=== PATIENT | female | born 1955 | race Caucasian/White ===

== ENCOUNTER 2018-05-20 16:48 | Emergency (ER) | payer BC ==
--- NOTE | 2018-05-20 17:52 | EDM.PDOC ---
ED HPI GENERAL MEDICAL PROBLEM - General Chief Complaint: Genitourinary Problem Stated Complaint: KIDNEY STONES-SENT FROM [facility] Time Seen by Provider: 05/20/18 17:22 Source of Information: Reports: Patient History Limitations: Reports: No Limitations - History of Present Illness INITIAL COMMENTS - FREE TEXT/NARRATIVE: Patient is a 62 y/o female who presents to the E.D. complaining of right flank pain that radiates into the right groin. Pain has been present since Sunday with worsening symptoms. She has been experiencing intermittent nausea/ vomiting with onset of pain. She has a history of kidney stones and states the pain is similar to previous episodes. Pain does come and go. At its worst she is unable to get comfortable. Denies painful urination, fever, hematuria, cp, sob, diarrhea, and or any additional complaints. Right Flank Pain Score (Numeric/FACES): 8 - Related Data Allergies Allergy/AdvReac Type Severity Reaction Status Date / Time Penicillins Allergy Hives Verified 05/20/18 17:05 Home Meds: Home Meds Ondansetron [Zofran ODT] 4 mg PO Q6H PRN #15 tab.dis 05/20/18 [Rx] oxyCODONE HCl/Acetaminophen [Percocet 10-325 mg Tablet] 1 each PO Q6HR PRN #25 tablet 05/20/18 [Rx] Past Medical History Cardiovascular History: Reports: Hypertension Genitourinary History: Reports: Renal Calculus, Other (See Below) Other Genitourinary History: lithotripsy Endocrine/Metabolic History: Reports: Other (See Below) Other Endocrine/Metabolic History: diet controlled diabetis Social & Family History - Tobacco Use Smoking Status *Q: Former Smoker Used Tobacco, but Quit: Yes Month/Year Tobacco Last Used: 10 years ED ROS GENERAL - Review of Systems Review Of Systems: ROS reveals no pertinent complaints other than HPI. ED EXAM, GI/ABD - Physical Exam Exam: See Below Exam Limited By: No Limitations General Appearance: Alert, WD/WN, Mild Distress Ears: Hearing Grossly Normal Nose: Normal Inspection Throat/Mouth: Normal Voice, No Airway Compromise Neck: Normal Inspection Respiratory/Chest: No Respiratory Distress, Lungs Clear, Normal Breath Sounds, No Accessory Muscle Use Cardiovascular: Normal Peripheral Pulses, Regular Rate, Rhythm GI/Abdominal Exam: Normal Bowel Sounds, Soft, No Organomegaly, No Distention, Other (right flank. No pain along McBurney's point.) (Female) Exam: Deferred Rectal (Female) Exam: Deferred Back Exam: Normal Inspection, Full Range of Motion, CVA Tenderness (R). No: Paraspinal Tenderness, Vertebral Tenderness Extremities: Normal Inspection, Normal Range of Motion, Non-Tender Neurological: Alert, Oriented, CN II-XII Intact, Normal Cognition, No Motor/ Sensory Deficits Psychiatric: Normal Affect, Normal Mood Skin Exam: Warm, Dry, Intact, Normal Color Course - Vital Signs Last Recorded V/S: Last Vital Signs Temp 98.8 F 05/20/18 17:06 Pulse 99 05/20/18 17:06 Resp 18 05/20/18 17:06 BP 173/79 H 05/20/18 17:06 Pulse Ox 98 05/20/18 17:06 - Orders/Labs/Meds Labs: Laboratory Tests 05/20/18 05/20/18 05/20/18 Range/Units 17:00 17:15 17:15 WBC 12.39 H (3.98-10.04) K/mm3 RBC 4.71 (3.98-5.22) M/mm3 Hgb 14.6 (11.2-15.7) gm/L Hct 43.4 (34.1-44.9) % MCV 92.1 (79.4-94.8) fl MCH 31.0 (25.6-32.2) pg MCHC 33.6 (32.2-35.5) g/dl RDW Std Deviation 40.9 (36.4-46.3) fL Plt Count 211 (182-369) K/mm3 MPV 10.5 (9.4-12.3) fl Neutrophils % (Manual) 60 (40-60) % Band Neutrophils % 0 (0-10) % Lymphocytes % (Manual) 31 (20-40) % Atypical Lymphs % 0 % Monocytes % (Manual) 7 (2-10) % Eosinophils % (Manual) 0 L (0.7-5.8) % Basophils % (Manual) 2 H (0.1-1.2) Platelet Estimate Adequate Plt Morphology Comment Normal RBC Morph Comment Normal Sodium 135 L (136-145) mEq/L Potassium 3.8 (3.5-5.1) mEq/L Chloride 100 (98-107) mEq/L Carbon Dioxide 24 (21-32) mEq/L Anion Gap 14.8 (5-15) BUN 13 (7-18) mg/dL Creatinine 1.3 H (0.55-1.02) mg/dL Est Cr Clr Drug Dosing 36.40 mL/min Estimated GFR (MDRD) 42 (>60) mL/min BUN/Creatinine Ratio 10.0 L (14-18) Glucose 131 H (74-106) mg/dL Calcium 9.3 (8.5-10.1) mg/dL Total Bilirubin 0.9 (0.2-1.0) mg/dL AST 36 (15-37) U/L ALT 42 (14-59) U/L Alkaline Phosphatase 77 (46-116) U/L C-Reactive Protein 3.5 H* (<1.0) mg/dL Total Protein 8.8 H (6.4-8.2) g/dl Albumin 3.8 (3.4-5.0) g/dl Globulin 5.0 gm/dL Albumin/Globulin Ratio 0.8 L (1-2) Urine Color Yellow (Yellow) Urine Appearance Clear (Clear) Urine pH 6.5 (5.0-8.0) Ur Specific [place] 1.020 (1.005-1.030) Urine Protein Negative (Negative) Urine Glucose (UA) Negative (Negative) Urine Ketones Negative (Negative) Urine Occult Blood Negative (Negative) Urine Nitrite Negative (Negative) Urine Bilirubin Negative (Negative) Urine Urobilinogen 0.2 (0.2-1.0) Ur Leukocyte Esterase Trace H (Negative) Urine RBC 0-5 (0-5) /hpf Urine WBC 5-10 H (0-5) /hpf Ur Epithelial Cells 5-10 H (0-5) /hpf Urine Bacteria Few (FEW) /hpf Urine Mucus Not seen (FEW) /hpf Meds: Medications Discontinued Medications Generic Name Dose Route Start Last Admin Trade Name Freq PRN Reason Stop Dose Admin Hydromorphone HCl 0.5 mg 05/20/18 17:47 05/20/18 18:01 Dilaudid IVPUSH 05/20/18 17:48 0.5 mg ONETIME ONE Administration Hydromorphone HCl 0.5 mg 05/20/18 19:28 05/20/18 19:39 Dilaudid IVPUSH 05/20/18 19:29 0.5 mg ONETIME ONE Administration Sodium Chloride 1,000 mls @ 250 mls/hr 05/20/18 17:47 05/20/18 18:00 Normal Saline IV 05/20/18 21:46 250 mls/hr ONETIME ONE Administration Ketorolac Tromethamine 15 mg 05/20/18 19:31 05/20/18 19:38 Toradol IVPUSH 05/20/18 19:32 15 mg ONETIME ONE Administration Ondansetron HCl 4 mg 05/20/18 17:47 05/20/18 17:59 Zofran IVPUSH 05/20/18 17:48 4 mg ONETIME ONE Administration Sodium Chloride 10 ml 05/20/18 17:47 05/20/18 18:01 Saline Flush FLUSH 10 ml ASDIRECTED PRN Administration Keep Vein Open Tamsulosin HCl 0.4 mg 05/20/18 17:47 05/20/18 18:16 Flomax PO 05/20/18 17:48 0.4 mg ONETIME ONE Administration - Re-Assessments/Exams Free Text/Narrative Re-Assessment/Exam: IV established with normal saline, Dilaudid 0.5 IVP, Zofran 4 mg IVP, and Flomax 0.4 mg by mouth. Initial slab studies will include CBC, chem 14, CRP are PE, UA, and CT the abdomen and pelvis without contrast. Labs reviewed: CBC revealed no concerning findings. NA 135, Cr 1.3, Glucose 131 , CRP 3.5. UA trace leukocyte esterase, Urine WBC's 5-10, Epithelial Cells 5 to 10. Appears contaminated. Urine culture obtained. CT abdomen and pelvis impression: 1.3 cm obstructing stone located at the right UPJ causing proximal hydronephrosis. Fatty infiltration throughout the liver. Other incidental findings as noted above. Patient requested transport to [facility] for urology consultation. [facility] is full. Contacted [facility] and spoke to Dr. Elena with Urology. Recommended attempting to get adequate pain control here in the ED. If so this can be treated as an outpatient basis. If unable to get pain under control, nausea/ vomiting, and or develops an infection that would require admission. If unable to get pain control contact hospitalist for admission and they will consult. 05/20/18 19:25 Reassessment, patient's pain has come back. I have ordered Toradol 50 mg IV and also Dilaudid 0.5 mg IV. 05/20/18 20:40 Reassessment, patients pain has improved. She is willing to go home and seek treatment outpatient. Return precautions discussed with the patient. She had no further questions and agrees with plan. Departure - Departure Time of Disposition: 20:43 Disposition: Home, Self-Care 01 Condition: Good Clinical Impression: Hydronephrosis with obstructing calculus - Discharge Information Prescriptions: oxyCODONE HCl/Acetaminophen [Percocet 10-325 mg Tablet] 1 each PO Q6HR PRN #25 tablet PRN Reason: Pain (Severe 7-10) Ondansetron [Zofran ODT] 4 mg PO Q6H PRN #15 tab.dis PRN Reason: Nausea/Vomiting Instructions: Kidney Stones, [id number], Hydronephrosis Referrals: PCP,None [Primary Care Provider] - Forms: ED Department Discharge Additional Instructions: Take the percocet and zofran as prescribed. Continue to push the fluids. Call Urology at [facility] tomorrow morning to schedule an appt to be evaluated this week. No driving this evening since receiving a sedative medication. Return to the E.D. if you develop worsening pain, n/v, and /or fever. Do not hesitate to return if you develop these symptoms.
[2018-05-20] MEDS: Ondansetron 4 MG/2 ML SDV IVPUSH ONE (17:59)
[2018-05-20] MEDS: Sodium Chloride 0.9% 1,000 ML IV ONE (18:00)
[2018-05-20] MEDS: HYDROmorphone 0.5 MG/0.5 ML SYRINGE IVPUSH ONE ×2 (18:01→19:39)
[2018-05-20] MEDS: Sodium Chloride 0.9% 10 ML Syringe FLUSH PRN (18:01)
[2018-05-20] MEDS: Tamsulosin 0.4 MG Cap.ER PO ONE (18:16)
--- NOTE | 2018-05-20 18:55 | CT ---
CT abdomen and pelvis Technique: Multiple axial sections were obtained from above the dome of the diaphragm inferiorly through the pubic symphysis. Intravenous and oral contrast not utilized. Study has been performed as a ureteral stone protocol. Comparison: No prior study. Findings: 1.3 cm obstructing stone is noted at the right UPJ causing dilated collecting system of the right kidney. No other abnormal calcifications are seen along the course of the ureters. No other abnormal calcifications are seen within the kidneys. Visualized lung bases are clear. Liver shows diffuse fatty infiltration. Spleen appears within normal limits. Adrenal glands show no nodule. Pancreas is within normal limits. Aorta shows diffuse atherosclerotic change without aneurysm. No retroperitoneal adenopathy or mesenteric abnormalities are seen. No pelvic mass or adenopathy is seen. No free fluid is identified. Bone window settings were reviewed which shows scattered degenerative change throughout the spine. 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 Impression: 1. 1.3 cm obstructing stone located at the right UPJ causing proximal hydronephrosis. 2. Fatty infiltration throughout the liver. 3. Other incidental findings as noted above. Diagnostic code #3
[2018-05-20] MEDS: Ketorolac 30 MG/ML SDV IVPUSH ONE (19:38)
== END 2018-05-20 20:57 | disposition home or self-care (01) ==
LOC: JD.ED 16:48
DX: N13.2 Hydronephrosis with renal and ureteral calculous obstruction (principal); I10 Essential (primary) hypertension; Z87.891 Personal history of nicotine dependence; Z88.0 Allergy status to penicillin
CPT/HCPCS: 36415; 74176; 80053; 81001; 85007; 85027; 86140; 87086; 96361; 96374; 96375; 96376; 99284; A9270; J1170; J1885; J2405; J7040; J7050

== ENCOUNTER 2019-03-12 16:36 | Emergency (ER) | payer BC ==
[2019-03-12] MEDS ORDERED: Sodium Chloride 0.9% 10 ML Syringe FLUSH PRN (17:04)
[2019-03-12] MEDS ORDERED: Ondansetron 4 MG/2 ML SDV IVPUSH ONE (17:04)
[2019-03-12] MEDS ORDERED: Sodium Chloride 0.9% 1,000 ML IV SCH (17:15)
[2019-03-12 17:45] LABS: HEMOGLOBIN A1C 6.9 % (4.50-6.20)
--- NOTE | 2019-03-12 18:11 | EDM.PDOC ---
ED HPI GENERAL MEDICAL PROBLEM - General Chief Complaint: Diabetic Complaint Stated Complaint: DIABETIC - NAUSEA - LETHARGIC Time Seen by Provider: 03/12/19 16:54 Source of Information: Reports: Patient History Limitations: Reports: No Limitations - History of Present Illness INITIAL COMMENTS - FREE TEXT/NARRATIVE: The patient presents with nausea and generalized weakness. This started this morning. She also was dizzy. She sat down and had some orange juice and toast. She felt better after that and later took her grand children out. She did not feel well again and she called Brigid Coffey's nurse and she advised her to come be seen. She has some mild upper abdominal pain. She has no chest pain or shortness of breath. She was recently diagnosed with type II diabetes and was put on metformin. Her A1c was 7.4. She has no fever, chills, cough, diarrhea or dysuria. She does not have a gallbladder. Onset: Gradual Duration: Hour(s): Location: Reports: Abdomen Quality: Reports: Ache Severity: Mild Improves with: Reports: None Worsens with: Reports: None Associated Symptoms: Reports: Nausea/Vomiting. Denies: Chest Pain, Cough, Fever /Chills, Headaches, Shortness of Breath - Related Data Allergies Allergy/AdvReac Type Severity Reaction Status Date / Time Penicillins Allergy Hives Verified 03/12/19 16:56 Home Meds: Home Meds Cephalexin [Keflex] 500 mg PO BID #10 capsule 03/12/19 [Rx] Cyclobenzaprine [Flexeril] 5 - 10 mg PO TID PRN 03/12/19 [History] FLUoxetine HCl [Fluoxetine HCl] 40 mg PO DAILY 03/12/19 [History] Naproxen 500 mg PO BID PRN 03/12/19 [History] Ondansetron [Zofran ODT] 4 mg PO Q6H PRN #20 tab.dis 03/12/19 [Rx] metFORMIN [Glucophage XR] 1,000 mg PO BID 03/12/19 [History] Past Medical History Cardiovascular History: Reports: Hypertension Genitourinary History: Reports: Renal Calculus, Other (See Below) Other Genitourinary History: lithotripsy Musculoskeletal History: Reports: Other (See Below) Other Musculoskeletal History: spinal stenosis Psychiatric History: Reports: Depression Endocrine/Metabolic History: Reports: Other (See Below) Other Endocrine/Metabolic History: diet controlled diabetis - Past Surgical History GI Surgical History: Reports: Cholecystectomy Social & Family History - Tobacco Use Smoking Status *Q: Former Smoker Used Tobacco, but Quit: Yes Month/Year Tobacco Last Used: 11/2009 - Caffeine Use Caffeine Use: Reports: Coffee, Soda - Recreational Drug Use Recreational Drug Use: No ED ROS GENERAL - Review of Systems Review Of Systems: See Below Constitutional: Reports: No Symptoms HEENT: Reports: No Symptoms Respiratory: Reports: No Symptoms Cardiovascular: Reports: No Symptoms Endocrine: Reports: No Symptoms GI/Abdominal: Reports: Abdominal Pain, Nausea. Denies: Diarrhea, Vomiting : Reports: No Symptoms Musculoskeletal: Reports: No Symptoms ED EXAM GENERAL NO PERIP PULSE - Physical Exam Exam: See Below Exam Limited By: No Limitations General Appearance: Alert, No Apparent Distress Ears: Normal External Exam Nose: Normal Inspection Head: Atraumatic, Normocephalic Neck: Normal Inspection Respiratory/Chest: No Respiratory Distress, Lungs Clear, Normal Breath Sounds Cardiovascular: Regular Rate, Rhythm, No Edema, No Murmur GI/Abdominal: Soft, Non-Tender, No Organomegaly, No Mass Back Exam: Normal Inspection Extremities: Normal Inspection EKG INTERPRETATION EKG Date: 03/12/19 Time: 17:18 Rhythm: NSR Rate (Beats/Min): 91 [place]: Normal P-Wave: Present QRS: Normal ST-T: Normal QT: Normal Course - Vital Signs Last Recorded V/S: Last Vital Signs Temp 97.6 F 03/12/19 16:49 Pulse 97 03/12/19 16:49 Resp 18 03/12/19 16:49 BP 138/81 03/12/19 16:49 Pulse Ox 100 03/12/19 16:49 - Orders/Labs/Meds Orders: Active Orders 24 hr Category Date Time Status Cardiac Monitoring [RC] . DIRECTED Care 03/12/19 17:04 Active EKG Documentation Completion [RC] STAT Care 03/12/19 17:05 Active Peripheral IV Care [RC] . DIRECTED Care 03/12/19 17:04 Active Chest 1V Frontal [CR] Stat Exams 03/12/19 17:05 Taken Sodium Chloride 0.9% [Normal Saline] 1,000 ml Med 03/12/19 17:15 Active IV .BOLUS Sodium Chloride 0.9% [Saline Flush] Med 03/12/19 17:04 Active 10 ml FLUSH ASDIRECTED PRN ED Antiemetic Medication Reflex [OM.PC] Stat Oth 03/12/19 17:04 Ordered Peripheral IV Insertion Adult [OM.PC] Stat Oth 03/12/19 17:04 Ordered Medication Orders Sodium Chloride (Normal Saline) 1,000 mls @ 1,000 mls/hr IV .BOLUS AICHA Last Admin: 03/12/19 17:15 Dose: 1,000 mls/hr Sodium Chloride (Saline Flush) 10 ml FLUSH ASDIRECTED PRN PRN Reason: Keep Vein Open Last Admin: 03/12/19 17:16 Dose: 10 ml Labs: Laboratory Tests 03/12/19 03/12/19 03/12/19 Range/Units 16:52 16:55 16:55 WBC 7.11 (3.98-10.04) K/mm3 RBC 5.05 (3.98-5.22) M/mm3 Hgb 15.3 (11.2-15.7) gm/L Hct 45.7 H (34.1-44.9) % MCV 90.5 (79.4-94.8) fl MCH 30.3 (25.6-32.2) pg MCHC 33.5 (32.2-35.5) g/dl RDW Std Deviation 42.6 (36.4-46.3) fL Plt Count 180 L (182-369) K/mm3 MPV 9.9 (9.4-12.3) fl Neut % (Auto) 59.4 (34.0-71.1) % Lymph % (Auto) 31.4 (19.3-51.7) % [place] % (Auto) 6.9 (4.7-12.5) % Eos % (Auto) 1.7 (0.7-5.8) Baso % (Auto) 0.3 (0.1-1.2) % Neut # (Auto) 4.23 (1.56-6.13) K/mm3 Lymph # (Auto) 2.23 (1.18-3.74) K/mm3 [place] # (Auto) 0.49 H (0.24-0.36) K/mm3 Eos # (Auto) 0.12 (0.04-0.36) K/mm3 Baso # (Auto) 0.02 (0.01-0.08) K/mm3 Sodium 133 L (136-145) mEq/L Potassium 3.7 (3.5-5.1) mEq/L Chloride 99 (98-107) mEq/L Carbon Dioxide 22 (21-32) mEq/L Anion Gap 15.7 H (5-15) BUN 20 H (7-18) mg/dL Creatinine 0.9 (0.55-1.02) mg/dL Est Cr Clr Drug Dosing 49.53 mL/min Estimated GFR (MDRD) > 60 (>60) mL/min BUN/Creatinine Ratio 22.2 H (14-18) Glucose 136 H (80-115) mg/dL POC Glucose 130 H (80-115) mg/dL Hemoglobin A1c (4.50-6.20) % Calcium 9.3 (8.5-10.1) mg/dL Total Bilirubin 0.5 (0.2-1.0) mg/dL AST 40 H (15-37) U/L ALT 47 (14-59) U/L Alkaline Phosphatase 86 (46-116) U/L Troponin I < 0.017 (0.00-0.056) ng/mL Total Protein 8.1 (6.4-8.2) g/dl Albumin 4.0 (3.4-5.0) g/dl Globulin 4.1 gm/dL Albumin/Globulin Ratio 1.0 (1-2) Lipase 186 (73-393) U/L Urine Color (Yellow) Urine Appearance (Clear) Urine pH (5.0-8.0) Ur Specific [place] (1.005-1.030) Urine Protein (Negative) Urine Glucose (UA) (Negative) Urine Ketones (Negative) Urine Occult Blood (Negative) Urine Nitrite (Negative) Urine Bilirubin (Negative) Urine Urobilinogen (0.2-1.0) Ur Leukocyte Esterase (Negative) Urine RBC (0-5) /hpf Urine WBC (0-5) /hpf Ur Epithelial Cells (0-5) /hpf Urine Bacteria (FEW) /hpf Urine Mucus (FEW) /hpf 03/12/19 03/12/19 Range/Units 16:55 17:17 WBC (3.98-10.04) K/mm3 RBC (3.98-5.22) M/mm3 Hgb (11.2-15.7) gm/L Hct (34.1-44.9) % MCV (79.4-94.8) fl MCH (25.6-32.2) pg MCHC (32.2-35.5) g/dl RDW Std Deviation (36.4-46.3) fL Plt Count (182-369) K/mm3 MPV (9.4-12.3) fl Neut % (Auto) (34.0-71.1) % Lymph % (Auto) (19.3-51.7) % [place] % (Auto) (4.7-12.5) % Eos % (Auto) (0.7-5.8) Baso % (Auto) (0.1-1.2) % Neut # (Auto) (1.56-6.13) K/mm3 Lymph # (Auto) (1.18-3.74) K/mm3 [place] # (Auto) (0.24-0.36) K/mm3 Eos # (Auto) (0.04-0.36) K/mm3 Baso # (Auto) (0.01-0.08) K/mm3 Sodium (136-145) mEq/L Potassium (3.5-5.1) mEq/L Chloride (98-107) mEq/L Carbon Dioxide (21-32) mEq/L Anion Gap (5-15) BUN (7-18) mg/dL Creatinine (0.55-1.02) mg/dL Est Cr Clr Drug Dosing mL/min Estimated GFR (MDRD) (>60) mL/min BUN/Creatinine Ratio (14-18) Glucose (80-115) mg/dL POC Glucose (80-115) mg/dL Hemoglobin A1c 6.90 H (4.50-6.20) % Calcium (8.5-10.1) mg/dL Total Bilirubin (0.2-1.0) mg/dL AST (15-37) U/L ALT (14-59) U/L Alkaline Phosphatase (46-116) U/L Troponin I (0.00-0.056) ng/mL Total Protein (6.4-8.2) g/dl Albumin (3.4-5.0) g/dl Globulin gm/dL Albumin/Globulin Ratio (1-2) Lipase (73-393) U/L Urine Color Yellow (Yellow) Urine Appearance Clear (Clear) Urine pH 6.0 (5.0-8.0) Ur Specific [place] 1.020 (1.005-1.030) Urine Protein Negative (Negative) Urine Glucose (UA) Negative (Negative) Urine Ketones Negative (Negative) Urine Occult Blood Negative (Negative) Urine Nitrite Negative (Negative) Urine Bilirubin Negative (Negative) Urine Urobilinogen 1.0 (0.2-1.0) Ur Leukocyte Esterase 1+ H (Negative) Urine RBC 0-5 (0-5) /hpf Urine WBC 20-30 H (0-5) /hpf Ur Epithelial Cells 0-5 (0-5) /hpf Urine Bacteria Few H (FEW) /hpf Urine Mucus Rare (FEW) /hpf Meds: Medications Generic Name Dose Route Start Last Admin Trade Name Freq PRN Reason Stop Dose Admin Sodium Chloride 1,000 mls @ 1,000 mls/hr 03/12/19 17:15 03/12/19 17:15 Normal Saline IV 1,000 mls/hr .BOLUS AICHA Administration Sodium Chloride 10 ml 03/12/19 17:04 03/12/19 17:16 Saline Flush FLUSH 10 ml ASDIRECTED PRN Administration Keep Vein Open Discontinued Medications Generic Name Dose Route Start Last Admin Trade Name Freq PRN Reason Stop Dose Admin Ondansetron HCl 4 mg 03/12/19 17:04 03/12/19 17:15 Zofran IVPUSH 03/12/19 17:05 4 mg ONETIME ONE Administration - Re-Assessments/Exams Free Text/Narrative Re-Assessment/Exam: 03/12/19 18:24 I ordered an IV NS 1L bolus, zofran 4mg IV, EKG, CXR and labs. Her EKG shows a NSR with no acute changes. Her CBC looks good. Her Na was a little low at 133. Her anion gap was elevated at 15.7. Her glucose was 136 on the lab draw and 130 at the bed side. Her A1C is 6.9 and that is an improvement from 7.4. Her troponin is negative. Her UA shows a UTI. I will get her on some antibiotics and something for nausea. Departure - Departure Time of Disposition: 18:30 Disposition: Home, Self-Care 01 Condition: Good Clinical Impression: Nausea UTI (urinary tract infection) Qualifiers: Urinary tract infection type: site unspecified Hematuria presence: without hematuria Qualified Code(s): N39.0 - Urinary tract infection, site not specified - Discharge Information *PRESCRIPTION DRUG MONITORING PROGRAM REVIEWED*: Not Applicable *COPY OF PRESCRIPTION DRUG MONITORING REPORT IN PATIENT JOHNNA: Not Applicable Prescriptions: Cephalexin [Keflex] 500 mg PO BID #10 capsule Ondansetron [Zofran ODT] 4 mg PO Q6H PRN #20 tab.dis PRN Reason: Nausea\vomiting Referrals: Ann-Marie Coffey PA-C [Primary Care Provider] - 1 Week Forms: ED Department Discharge Additional Instructions: Drink plenty of fluids. Take keflex 2 times per day for 5 days. Take the zofran every 6 hours as needed for nausea and vomiting. Please return if you are worse. Keep taking the metformin. - My Orders Last 24 Hours: My Active Orders 03/12/19 17:04 Cardiac Monitoring [RC] . DIRECTED Peripheral IV Care [RC] . DIRECTED Sodium Chloride 0.9% [Saline Flush] 10 ml FLUSH ASDIRECTED PRN ED Antiemetic Medication Reflex [OM.PC] Stat Peripheral IV Insertion Adult [OM.PC] Stat 03/12/19 17:05 EKG Documentation Completion [RC] STAT Chest 1V Frontal [CR] Stat 03/12/19 17:15 Sodium Chloride 0.9% [Normal Saline] 1,000 ml IV .BOLUS - Assessment/Plan Last 24 Hours: My Active Orders 03/12/19 17:04 Cardiac Monitoring [RC] . DIRECTED Peripheral IV Care [RC] . DIRECTED Sodium Chloride 0.9% [Saline Flush] 10 ml FLUSH ASDIRECTED PRN ED Antiemetic Medication Reflex [OM.PC] Stat Peripheral IV Insertion Adult [OM.PC] Stat 03/12/19 17:05 EKG Documentation Completion [RC] STAT Chest 1V Frontal [CR] Stat 03/12/19 17:15 Sodium Chloride 0.9% [Normal Saline] 1,000 ml IV .BOLUS
--- NOTE | 2019-03-14 10:55 | CR ---
Chest: Frontal view of the chest was obtained utilizing portable technique. Comparison: No prior chest imaging is available. Heart size and mediastinum are within normal limits for portable technique. Lungs are clear with no acute parenchymal change. Bony structures are grossly intact. There is evidence of previous cervical spine surgery. Impression: 1. Nothing acute is appreciated on portable chest x-ray. Diagnostic code #2
== END 2019-03-12 18:47 | disposition home or self-care (01) ==
LOC: JD.ED 16:36
DX: N39.0 Urinary tract infection, site not specified (principal); R11.0 Nausea; I10 Essential (primary) hypertension; F32.9 Major depressive disorder, single episode, unspecified; Z87.891 Personal history of nicotine dependence; Z88.0 Allergy status to penicillin; Z79.899 Other long term (current) drug therapy
CPT/HCPCS: 36415; 71045; 80053; 81001; 82962; 83036; 83690; 84484; 85025; 93005; 96361; 96374; 99284; J2405; J7040; 93010

== ENCOUNTER 2020-01-23 10:50 | Emergency (ER) | payer BC ==
[2020-01-23] MEDS ORDERED: Ibuprofen 600 MG Tab PO ONE (11:12)
--- NOTE | 2020-01-23 11:13 | EDM.PDOC ---
ED HPI GENERAL MEDICAL PROBLEM - General Chief Complaint: Respiratory Problem Stated Complaint: COUGH Time Seen by Provider: 01/23/20 11:07 Source of Information: Reports: Patient History Limitations: Reports: No Limitations - History of Present Illness INITIAL COMMENTS - FREE TEXT/NARRATIVE: 64-year-old female presents to the ED after she had to leave work due to feeling ill. She reports that she developed sudden onset of fever, chills, headache and paroxysmal cough last evening which is worsened this morning. 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 She reports she was completely well with no cough up until last evening. Is and she is very weak and feels like she could fall down if she stood up to or too long. She found she could no longer carry on in the workplace. 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 She has taken acetaminophen last evening and again this morning. Has not taken any Motrin. Patient is a type II diabetic controlled with metformin 1000 mg twice daily Onset: Sudden Onset Date: 01/22/20 Duration: Hour(s):, Getting Worse Location: Reports: Head (Is pounding headache), Chest (Paroxysmal productive sounding cough), Generalized, Other (Neurolyse myalgia loss of appetite) Quality: Reports: Ache, Other Severity: Moderate (Headache paroxysmal cough) Improves with: Reports: None Worsens with: Reports: None Context: Denies: Activity, Exercise, Lifting, Sick Contact, Trauma, Other Associated Symptoms: Reports: Chest Pain, Cough, cough w sputum, Fever/Chills, Headaches, Loss of Appetite, Malaise, Shortness of Breath, Weakness. 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 Chest Pain Score (Numeric/FACES): 8 - Related Data Allergies Allergy/AdvReac Type Severity Reaction Status Date / Time Penicillins Allergy Hives Verified 03/12/19 16:56 Home Meds: Home Meds FLUoxetine HCl [Fluoxetine HCl] 40 mg PO DAILY 03/12/19 [History] Naproxen 500 mg PO BID PRN 03/12/19 [History] Ondansetron [Zofran ODT] 4 mg PO Q6H PRN #20 tab.dis 03/12/19 [Rx] metFORMIN [Glucophage XR] 1,000 mg PO BID 03/12/19 [History] Hydrocodone/Chlorphen P-Stirex [Hydrocodone-Chlorphen ER Susp] 5 ml PO Q12H #60 ml 01/23/20 [Rx] Oseltamivir [Tamiflu] 75 mg PO BID #10 cap 01/23/20 [Rx] Past Medical History - Past Health History Medical/Surgical History: Denies Medical/Surgical History Cardiovascular History: Reports: Hypertension Genitourinary History: Reports: Renal Calculus, Other (See Below) Other Genitourinary History: lithotripsy Musculoskeletal History: Reports: Other (See Below) Other Musculoskeletal History: spinal stenosis Psychiatric History: Reports: Depression Endocrine/Metabolic History: Reports: Other (See Below) Other Endocrine/Metabolic History: diet controlled diabetis - Past Surgical History GI Surgical History: Reports: Cholecystectomy Social & Family History - Tobacco Use Smoking Status *Q: Never Smoker - Caffeine Use Caffeine Use: Reports: Coffee, Soda - Recreational Drug Use Recreational Drug Use: No - Living Situation & Occupation Living situation: Reports: Single Occupation: Employed ED ROS GENERAL - Review of Systems Review Of Systems: See Below Constitutional: Reports: Fever, Chills, Malaise, Weakness, Fatigue, Decreased Appetite HEENT: Reports: Throat Pain Respiratory: Reports: Shortness of Breath, Cough, Sputum. Denies: Hemoptysis Cardiovascular: Reports: Chest Pain, Blood Pressure Problem (Coughing so hard.) , Lightheadedness. Denies: Claudication, Orthopnea Endocrine: Reports: Fatigue GI/Abdominal: Reports: Decreased Appetite : Reports: No Symptoms Musculoskeletal: Reports: Muscle Pain Skin: Reports: No Symptoms (Generalized myalgia) Neurological: Reports: Dizziness, Headache Psychiatric: Reports: No Symptoms Hematologic/Lymphatic: Reports: No Symptoms Immunologic: Reports: No Symptoms ED EXAM, GENERAL - Physical Exam Exam: See Below Exam Limited By: No Limitations General Appearance: Alert, WD/WN, Mild Distress, Other (Patient appears ill. Temperature is 101.4. 37.6 Celsius. Heart rate is 105 at the bedside. Respiratory is 20 with sats of 99% on room air BP minimally elevated 150/70) Eye Exam: Bilateral Eye: Normal Inspection, PERRL Ears: Normal TMs, Other (She has had reconstructive surgery of her left tympanic membrane.) Throat/Mouth: Normal Inspection, Normal Lips, Normal Teeth, Normal Oropharynx Head: Atraumatic, Normocephalic Neck: Normal Inspection, Supple, Non-Tender, Full Range of Motion Respiratory/Chest: No Respiratory Distress, Lungs Clear, Normal Breath Sounds, No Accessory Muscle Use, Chest Non-Tender Cardiovascular: Normal Peripheral Pulses, Regular Rate, Rhythm, No Edema, No Gallop, No Murmur, No Rub Peripheral Pulses: 2+: Posterior Tibial (L), Posterior Tibial (R), Dorsalis Pedis (L), Dorsalis Pedis (R) GI/Abdominal: Normal Bowel Sounds, Soft, Non-Tender, No Organomegaly, No Abnormal Bruit, Pelvis Stable Back Exam: Normal Inspection, Full Range of Motion. No: CVA Tenderness (L), CVA Tenderness (R) Extremities: Normal Inspection, Normal Range of Motion, Non-Tender, No Pedal Edema Neurological: Alert, Oriented, CN II-XII Intact, Normal Cognition, Normal Gait Psychiatric: Normal Affect, Normal Mood Skin Exam: Warm, Dry, Intact, Normal Color, No Rash Course - Vital Signs Last Recorded V/S: Last Vital Signs Temp 37.2 C 01/23/20 12:40 Pulse 90 01/23/20 12:40 Resp 18 01/23/20 12:40 BP 108/64 01/23/20 12:40 Pulse Ox 96 01/23/20 12:40 - Orders/Labs/Meds Orders: Active Orders 24 hr Category Date Time Status Chest 1V Frontal [CR] Stat Exams 01/23/20 11:52 Taken Meds: Medications Discontinued Medications Generic Name Dose Route Start Last Admin Trade Name Freq PRN Reason Stop Dose Admin Ibuprofen 600 mg 01/23/20 11:12 01/23/20 11:19 Motrin PO 01/23/20 11:13 600 mg ONETIME ONE Administration - Radiology Interpretation Free Text/Narrative:: 64-year-old female presents to the ED with acute signs and symptoms of influenza. She developed headache fever and paroxysmal productive cough last evening after getting home from work. It is much worse this morning. She attempted to go to work but had to leave work due to illness. She feels generally weak lightheaded and dizzy. She has also lost her appetite. Of note she has developed symptoms within a 24-hour period of time frame and therefore may be influenza negative with screen. It will be done at any rate. If negative I will do a chest x-ray as well. She was given Motrin 600 mg p.o. in the ED. - Re-Assessments/Exams Free Text/Narrative Re-Assessment/Exam: 01/23/20 11:59 Influenza screen is negative. She will have a 1 view chest x- ray performed 01/23/20 12:18 this x-ray is negative for any signs of pneumonia. Plan clinically the patient has influenza in spite of a negative test for this. She will be treated with Tamiflu 5 mg twice daily for the next 5 days. I will also send her home with Penntuss cough syrup 5 mils every 12 hours. For cough relief. She will continue Motrin 600 mg every 6 hours for fever headache and body ache relief. I would note will be given to excuse her from the workplace for the next 7 days due to acute onset of illness and contagiousness tethers. Departure - Departure Time of Disposition: 12:19 Disposition: Home, Self-Care 01 Condition: Fair Clinical Impression: Influenza - Discharge Information *PRESCRIPTION DRUG MONITORING PROGRAM REVIEWED*: Not Applicable *COPY OF PRESCRIPTION DRUG MONITORING REPORT IN PATIENT JOHNNA: Not Applicable Prescriptions: Hydrocodone/Chlorphen P-Stirex [Hydrocodone-Chlorphen ER Susp] 5 ml PO Q12H #60 ml Oseltamivir [Tamiflu] 75 mg PO BID #10 cap Instructions: Influenza, Adult, [id number] Referrals: Ann-Marie Coffey PA-C [Primary Care Provider] - Forms: ED Department Discharge, ED Return to Work/School Form Additional Instructions: Evaluation in the emergency room this morning in regards to acute onset of fever , chills, headache, paroxysmal productive cough and complete loss of appetite. These are all signs and symptoms of influenza most likely influenza A. However screening test today is negative. This often occurs if we try and identify the virus within the first 24 hours of illness onset. Clinically you still have influenza. Chest x-ray was done to make sure we were not missing any pneumonia and none was found. Treatment is antiviral medicine Tamiflu 75 mg twice daily for the next 5 days starting is that he should get your medication. Plenty of fluids diet as tolerated. Motrin 600 mg every 6 hours as needed for relief of fever, headache, body aches. Cough syrup is Penntuss 5 mils every 12 hours as necessary for relief of cough. Plan on taking it in the evening a good hour before planning to go to bed as it takes an hour to work and coughing is always worse at nighttime. Cool mist medication and use sleeping quarters may also help ease up the cough. Her off work for the next 7 days due to current illness with influenza as you are considered contagious to others for up to [address] of cough droplets. Sepsis Event Note - Evaluation Sepsis Screening Result: No Definite Risk - Focused Exam Vital Signs: Vital Signs Temp Temp Pulse Resp BP Pulse Ox 01/23/20 12:40 37.2 C 90 18 108/64 96 01/23/20 11:19 38.3 C H 01/23/20 11:00 37.6 C 105 H 20 150/70 H 99 Date Exam was Performed: 01/23/20 Time Exam was Performed: 14:27 - My Orders Last 24 Hours: My Active Orders 01/23/20 11:52 Chest 1V Frontal [CR] Stat - Assessment/Plan Last 24 Hours: My Active Orders 01/23/20 11:52 Chest 1V Frontal [CR] Stat
--- NOTE | 2020-01-23 14:51 | CR ---
Chest: Portable view of the chest was obtained. Comparison: Prior chest x-ray of 03/12/19. Heart size and mediastinum are within normal limits for portable technique. Slightly prominent density off the right inferior hilum believed to represent vascular confluence. Lungs show no acute parenchymal change. Minimal scoliosis is noted within the spine with scattered degenerative change. Previous lower cervical spine surgery is noted. Impression: 1. Nothing acute is appreciated on portable chest x-ray. Diagnostic code #2 This report was dictated in [place] Standard Time
== END 2020-01-23 12:40 | disposition home or self-care (01) ==
LOC: JD.ED 10:50
DX: J11.1 Influenza due to unidentified influenza virus with other respiratory manifestations (principal); I10 Essential (primary) hypertension; F32.9 Major depressive disorder, single episode, unspecified; Z88.0 Allergy status to penicillin; Z79.899 Other long term (current) drug therapy
CPT/HCPCS: 71045; 87804; 99284; A9270; 99283

== ENCOUNTER 2020-03-08 14:50 | Emergency (ER) | payer BC, OTHER ==
[2020-03-08] MEDS ORDERED: Sodium Chloride 0.9% 10 ML Syringe FLUSH PRN (15:37)
[2020-03-08] MEDS ORDERED: Sodium Chloride 0.9% 500 ML IV ONE (15:39)
--- NOTE | 2020-03-08 16:48 | EDM.PDOC ---
ED HPI GENERAL MEDICAL PROBLEM - General Chief Complaint: Respiratory Problem Stated Complaint: HEADACHE,BODY ACHE,COUGH Time Seen by Provider: 03/08/20 14:55 Source of Information: Reports: Patient - History of Present Illness INITIAL COMMENTS - FREE TEXT/NARRATIVE: Return in onset of muscle aches headaches difficulty with taste, coughing and shortness of breath. Onset: Gradual Duration: Day(s): Location: Reports: Head, Chest Severity: Moderate Improves with: Reports: None Worsens with: Reports: None Associated Symptoms: Reports: Cough, Fever/Chills, Headaches, Loss of Appetite, Nausea/Vomiting, Shortness of Breath. 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 She had actually onset of cough and cold symptoms and possible early pneumonia bronchitis type symptoms early January. She traveled to [place] around February 03. She initially was seen and evaluated and treated with Zithromax Z-Anselmo and thought she was getting better and then she had a repeat check with the physician that she sees and they started her on a second round of a different antibiotic. Has a past history of smoking and does have a history of frequent pneumonia and lung infections in the past. She then finished a course of the second antibiotic and then was restarted on a third 1 can unfortunately do not know the names of the medication she was on. She finished the last round #3 2 weeks ago. She stated that she was feeling somewhat better. 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 She also has 2 teenage grandsons and a teenage granddaughter that live at home that have not always been careful about staying home and self isolating and/or social distancing. She then noted onset of fevers muscle aches sore throat headaches shortness of breath overnight and worse today and therefore comes in for evaluation. Has onset of diarrhea last night and today. No vomiting noted. No burning pain or blood in the urine. No stiff neck, no skin rash. When she got back from [place] back in February 03 she had a negative coronavirus testing at that time. So had negative influenza screening.) Throat Pain Score (Numeric/FACES): 7 - Related Data Allergies Allergy/AdvReac Type Severity Reaction Status Date / Time Penicillins Allergy Hives Verified 03/08/20 15:23 Home Meds: Home Meds FLUoxetine HCl [Fluoxetine HCl] 40 mg PO DAILY 03/12/19 [History] Naproxen 500 mg PO BID PRN 03/12/19 [History] Ondansetron [Zofran ODT] 4 mg PO Q6H PRN #20 tab.dis 03/12/19 [Rx] metFORMIN [Glucophage XR] 1,000 mg PO BID 03/12/19 [History] Hydrocodone/Chlorphen P-Stirex [Hydrocodone-Chlorphen ER Susp] 5 ml PO Q12H #60 ml 01/23/20 [Rx] Oseltamivir [Tamiflu] 75 mg PO BID #10 cap 01/23/20 [Rx] Past Medical History - Past Health History Medical/Surgical History: Denies Medical/Surgical History Cardiovascular History: Reports: Hypertension Genitourinary History: Reports: Renal Calculus, Other (See Below) Other Genitourinary History: lithotripsy Musculoskeletal History: Reports: Other (See Below) Other Musculoskeletal History: spinal stenosis Psychiatric History: Reports: Depression Endocrine/Metabolic History: Reports: Other (See Below) Other Endocrine/Metabolic History: diet controlled diabetis - Past Surgical History GI Surgical History: Reports: Cholecystectomy Social & Family History - Tobacco Use Smoking Status *Q: Former Smoker Used Tobacco, but Quit: Yes Month/Year Tobacco Last Used: 2019 - Caffeine Use Caffeine Use: Reports: None - Recreational Drug Use Recreational Drug Use: No - Living Situation & Occupation Living situation: Reports: Single Occupation: Employed ED ROS GENERAL - Review of Systems Review Of Systems: See Below Constitutional: Reports: Fever, Chills, Weakness, Fatigue, Decreased Appetite. Denies: Diaphoresis HEENT: Reports: Rhinitis, Throat Pain. Denies: Vertigo, Vision Change Respiratory: Reports: Shortness of Breath, Cough Cardiovascular: Reports: Dyspnea on Exertion, Lightheadedness. Denies: Chest Pain, Edema, Orthopnea, Palpitations, Syncope Endocrine: Reports: Fatigue GI/Abdominal: Reports: Diarrhea, Decreased Appetite, Nausea : Denies: Dysuria, Frequency, Hematuria Musculoskeletal: Reports: Muscle Pain Skin: Denies: Rash Neurological: Reports: Headache. Denies: Paresthesia Psychiatric: Reports: Anxiety Hematologic/Lymphatic: Reports: Anemia Immunologic: Reports: No Symptoms ED EXAM, GENERAL - Physical Exam Exam: See Below Exam Limited By: No Limitations General Appearance: Alert, WD/WN, No Apparent Distress Eye Exam: Bilateral Eye: EOMI, PERRL Throat/Mouth: Normal Inspection Head: Atraumatic Neck: Supple, Non-Tender. No: Lymphadenopathy (L), Lymphadenopathy (R) Respiratory/Chest: No Respiratory Distress, Lungs Clear, Normal Breath Sounds, No Accessory Muscle Use, Decreased Breath Sounds. No: Rales, Rhonchi, Wheezing Cardiovascular: Normal Peripheral Pulses, Regular Rate, Rhythm, No Edema, No JVD Peripheral Pulses: 2+: Radial (L), Radial (R) GI/Abdominal: Normal Bowel Sounds, Soft, Non-Tender, No Distention, No Mass Extremities: Normal Inspection, No Pedal Edema, Normal Capillary Refill Neurological: Alert, Oriented, CN II-XII Intact Psychiatric: Normal Affect, Normal Mood, Anxious Skin Exam: Warm, Dry Lymphatic: No Adenopathy Course - Vital Signs Last Recorded V/S: Last Vital Signs Temp 98.0 F 03/08/20 15:19 Pulse Resp 20 03/08/20 15:19 BP 152/89 H 03/08/20 15:19 Pulse Ox 98 03/08/20 15:19 - Orders/Labs/Meds Orders: Active Orders 24 hr Category Date Time Status Peripheral IV Care [RC] . DIRECTED Care 03/08/20 15:37 Active CORONAVIRUS COVID-19 PCR PHL Stat Lab 03/08/20 15:53 Received UA W/MICROSCOPIC [URIN] Stat Lab 03/08/20 17:49 Received Sodium Chloride 0.9% [Saline Flush] Med 03/08/20 15:37 Active 10 ml FLUSH ASDIRECTED PRN Peripheral IV Insertion Adult [OM.PC] Stat Oth 03/08/20 15:37 Ordered Medication Orders Sodium Chloride (Saline Flush) 10 ml FLUSH ASDIRECTED PRN PRN Reason: Keep Vein Open Last Admin: 03/08/20 16:19 Dose: 10 ml Labs: Laboratory Tests 03/08/20 03/08/20 03/08/20 Range/Units 15:53 15:53 15:53 WBC 8.22 (3.98-10.04) K/mm3 RBC 4.44 (3.98-5.22) M/mm3 Hgb 13.5 (11.2-15.7) gm/dl Hct 41.4 (34.1-44.9) % MCV 93.2 (79.4-94.8) fl MCH 30.4 (25.6-32.2) pg MCHC 32.6 (32.2-35.5) g/dl RDW Std Deviation 44.7 (36.4-46.3) fL Plt Count 198 (182-369) K/mm3 MPV 10.5 (9.4-12.3) fl Neut % (Auto) 46.3 (34.0-71.1) % Lymph % (Auto) 43.7 (19.3-51.7) % Warren % (Auto) 7.1 (4.7-12.5) % Eos % (Auto) 2.2 (0.7-5.8) Baso % (Auto) 0.5 (0.1-1.2) % Neut # (Auto) 3.81 (1.56-6.13) K/mm3 Lymph # (Auto) 3.59 (1.18-3.74) K/mm3 Warren # (Auto) 0.58 H (0.24-0.36) K/mm3 Eos # (Auto) 0.18 (0.04-0.36) K/mm3 Baso # (Auto) 0.04 (0.01-0.08) K/mm3 D-Dimer, Quantitative 0.41 (0.19-0.50) mg/L Sodium 137 (136-145) mEq/L Potassium 4.2 (3.5-5.1) mEq/L Chloride 103 (98-107) mEq/L Carbon Dioxide 24 (21-32) mEq/L Anion Gap 14.2 (5-15) BUN 11 (7-18) mg/dL Creatinine 0.8 (0.55-1.02) mg/dL Est Cr Clr Drug Dosing 57.67 mL/min Estimated GFR (MDRD) > 60 (>60) mL/min BUN/Creatinine Ratio 13.8 L (14-18) Glucose 126 H (80-115) mg/dL Lactic Acid (0.4-2.0) mmol/L Calcium 9.6 (8.5-10.1) mg/dL Ferritin (8-252) ng/ml Total Bilirubin 0.5 (0.2-1.0) mg/dL AST 56 H (15-37) U/L ALT 56 (14-59) U/L Alkaline Phosphatase 91 (46-116) U/L Lactate Dehydrogenase 175 (81-234) U/L C-Reactive Protein 0.5 (<1.0) mg/dL Total Protein 8.0 (6.4-8.2) g/dl Albumin 3.9 (3.4-5.0) g/dl Globulin 4.1 gm/dL Albumin/Globulin Ratio 1.0 (1-2) 03/08/20 03/08/20 03/08/20 Range/Units 15:53 15:53 18:11 WBC (3.98-10.04) K/mm3 RBC (3.98-5.22) M/mm3 Hgb (11.2-15.7) gm/dl Hct (34.1-44.9) % MCV (79.4-94.8) fl MCH (25.6-32.2) pg MCHC (32.2-35.5) g/dl RDW Std Deviation (36.4-46.3) fL Plt Count (182-369) K/mm3 MPV (9.4-12.3) fl Neut % (Auto) (34.0-71.1) % Lymph % (Auto) (19.3-51.7) % Warren % (Auto) (4.7-12.5) % Eos % (Auto) (0.7-5.8) Baso % (Auto) (0.1-1.2) % Neut # (Auto) (1.56-6.13) K/mm3 Lymph # (Auto) (1.18-3.74) K/mm3 Warren # (Auto) (0.24-0.36) K/mm3 Eos # (Auto) (0.04-0.36) K/mm3 Baso # (Auto) (0.01-0.08) K/mm3 D-Dimer, Quantitative (0.19-0.50) mg/L Sodium (136-145) mEq/L Potassium (3.5-5.1) mEq/L Chloride (98-107) mEq/L Carbon Dioxide (21-32) mEq/L Anion Gap (5-15) BUN (7-18) mg/dL Creatinine (0.55-1.02) mg/dL Est Cr Clr Drug Dosing mL/min Estimated GFR (MDRD) (>60) mL/min BUN/Creatinine Ratio (14-18) Glucose (80-115) mg/dL Lactic Acid 2.2 H* 1.8 (0.4-2.0) mmol/L Calcium (8.5-10.1) mg/dL Ferritin 180 (8-252) ng/ml Total Bilirubin (0.2-1.0) mg/dL AST (15-37) U/L ALT (14-59) U/L Alkaline Phosphatase (46-116) U/L Lactate Dehydrogenase (81-234) U/L C-Reactive Protein (<1.0) mg/dL Total Protein (6.4-8.2) g/dl Albumin (3.4-5.0) g/dl Globulin gm/dL Albumin/Globulin Ratio (1-2) Meds: Medications Generic Name Dose Route Start Last Admin Trade Name Freq PRN Reason Stop Dose Admin Sodium Chloride 10 ml 03/08/20 15:37 03/08/20 16:19 Saline Flush FLUSH 10 ml ASDIRECTED PRN Administration Keep Vein Open Discontinued Medications Generic Name Dose Route Start Last Admin Trade Name Freq PRN Reason Stop Dose Admin Sodium Chloride 500 mls @ 250 mls/hr 03/08/20 15:39 03/08/20 16:01 Normal Saline IV 03/08/20 17:38 250 mls/hr .BOLUS ONE Administration - Radiology Interpretation Free Text/Narrative:: Portable chest x-ray shows normal cardiac silhouette no pleural effusion, no obvious infiltrate noted no acute findings. - Re-Assessments/Exams Free Text/Narrative Re-Assessment/Exam: 03/08/20 16:51 Rule out coronavirus, sent off markers to include d-dimer, ferritin, LDH, along with a regular testing including a chest x-ray, coronavirus swab. Rule out other etiologies such as needed T acquired pneumonia, sepsis, other etiologies. 03/08/20 16:52 Results; White blood cell count 8200 hemoglobin 13.5 hematocrit of 41.4 platelet count is 198,000, differential shows normal lymphocyte count, d-dimer is negative, sodium 137 potassium 4.2 chloride 103 CO2 is 24 BUN is 11 creatinine 0.8, glucose is 126 lactic acid 2.2 AST 56 ALT 56 ferritin normal alkaline phosphatase normal LDH is normal alkaline Ray normal C-reactive protein is normal. 03/08/20 16:58 Overall evaluation so far is unremarkable for any acute signs of severe coronavirus. She still may have this however no signs of other infectious etiology, will have her self quarantine, monitor symptoms for the next 2 weeks, Tylenol for aches and fevers, will hold off on any antibiotic treatment present. Patient will need to be given return precautions. 03/08/20 18:49 Repeat lactate is in the normal range at 1.8. Will discharge patient home, precautions self isolate quarantine, return and follow-up instructions given. Departure - Departure Time of Disposition: 18:49 Disposition: Home, Self-Care 01 Condition: Good Clinical Impression: Influenza-like illness - Discharge Information Instructions: Upper Respiratory Infection, Adult, [id number], Coronavirus Information 02/09/20 Referrals: Ann-Marie Coffey PA-C [Primary Care Provider] - Forms: ED Department Discharge, ED Return to Work/School Form Additional Instructions: Rest, drink plenty of fluids, Tylenol for aches and fevers, self quarantine for next 2 weeks, monitor your temperature, you need to be home from work. Call into your primary care provider later this week to make sure you are on the right track to getting better. Return however to the emergency room if increasing work of breathing, shortness of breath, pain, worse. Sepsis Event Note - Evaluation Sepsis Screening Result: No Definite Risk - Focused Exam Vital Signs: Vital Signs Temp Resp BP Pulse Ox 03/08/20 15:19 98.0 F 20 152/89 H 98 Date Exam was Performed: 03/08/20 Time Exam was Performed: 18:49 - My Orders Last 24 Hours: My Active Orders 03/08/20 15:37 Peripheral IV Care [RC] . DIRECTED Sodium Chloride 0.9% [Saline Flush] 10 ml FLUSH ASDIRECTED PRN Peripheral IV Insertion Adult [OM.PC] Stat 03/08/20 15:53 CORONAVIRUS COVID-19 PCR PHL Stat 03/08/20 17:49 UA W/MICROSCOPIC [URIN] Stat - Assessment/Plan Last 24 Hours: My Active Orders 03/08/20 15:37 Peripheral IV Care [RC] . DIRECTED Sodium Chloride 0.9% [Saline Flush] 10 ml FLUSH ASDIRECTED PRN Peripheral IV Insertion Adult [OM.PC] Stat 03/08/20 15:53 CORONAVIRUS COVID-19 PCR PHL Stat 03/08/20 17:49 UA W/MICROSCOPIC [URIN] Stat
--- NOTE | 2020-03-08 16:56 | CR ---
Chest: Portable view of the chest was obtained. Comparison: Prior chest x-ray of 01/23/20. Heart size and mediastinum are within normal limits for portable technique. Lungs are clear with no acute parenchymal change. Mild scoliosis is noted within the spine with scattered degenerative change. Previous cervical spine surgery is noted. Impression: 1. Nothing acute is appreciated on portable chest x-ray. Diagnostic code #2 Study was dictated in MDT
== END 2020-03-08 19:05 | disposition home or self-care (01) ==
LOC: JD.ED 14:50
DX: J11.1 Influenza due to unidentified influenza virus with other respiratory manifestations (principal); F32.9 Major depressive disorder, single episode, unspecified; I10 Essential (primary) hypertension; Z87.891 Personal history of nicotine dependence; Z88.0 Allergy status to penicillin; Z79.899 Other long term (current) drug therapy; E11.9 Type 2 diabetes mellitus without complications; Z79.84 Long term (current) use of oral hypoglycemic drugs; Z20.828 Contact with and (suspected) exposure to other viral communicable diseases
CPT/HCPCS: 36415; 71045; 80053; 81001; 82728; 83605; 83615; 85025; 85379; 86140; 87635; 96360; 96361; 99285; J7030; 99283; U0002

== ENCOUNTER 2020-09-01 16:02 | Emergency (ER) | payer BC ==
[2020-09-01] MEDS ORDERED: FLU VACC QS2020-21(6MOS UP)/PF 60 MCG/0.5 ML SYRINGE IM ONE (16:45)
[2020-09-01] MEDS ORDERED: Doxycycline 100 MG Cap PO ONE (16:51)
[2020-09-01] MEDS ORDERED: Ibuprofen 600 MG Tab PO ONE (16:51)
--- NOTE | 2020-09-01 16:59 | EDM.PDOC ---
ED HPI GENERAL MEDICAL PROBLEM - General Chief Complaint: General Stated Complaint: COUGHING,ACH,EARS HURTING Time Seen by Provider: 09/01/20 16:11 Source of Information: Reports: Patient History Limitations: Reports: No Limitations - History of Present Illness INITIAL COMMENTS - FREE TEXT/NARRATIVE: Patient is a 65-year-old female presenting to the emergency department with co mplaints of acute bilateral ear pain, cough, and generalized body aches. Symptoms began upon waking yesterday morning. States she felt well the night before, however when she woke up yesterday morning she had sinus and nasal congestion, pain in both of her ears, and a moist, productive cough. She is also had generalized body aches, but no known fever or chills. Patient does have a history of bilateral otitis media. She currently has a myringotomy tube in her left ear placed by Dr. correa, ENT. She verbalized that she has a history of strep pneumoniae bacterial infection of the ears. She states that she has had some drainage from her left ear which is the ear that also has the myringotomy tube. Describes it as yellowish-brown in color. She has not taken anything for pain thus far today. Denies any abdominal pain, nausea, vomiting, or shortness of breath. Generalized Pain Score (Numeric/FACES): 6 - Related Data Allergies Allergy/AdvReac Type Severity Reaction Status Date / Time Penicillins Allergy Hives Verified 09/01/20 16:14 Home Meds: Home Meds FLUoxetine HCl [Fluoxetine HCl] 60 mg PO DAILY 03/12/19 [History] metFORMIN [Glucophage XR] 1,000 mg PO BID 03/12/19 [History] Doxycycline [Vibramycin] 100 mg PO BID 7 Days #14 tab 09/01/20 [Rx] Simvastatin 20 mg PO BEDTIME 09/01/20 [History] glipiZIDE [Glipizide ER] 1 tab PO DAILY 09/01/20 [History] hydrOXYzine HCL [Atarax] 25 mg PO TID PRN 09/01/20 [History] lisinopriL [Lisinopril] 10 mg PO DAILY 09/01/20 [History] Past Medical History - Past Health History Medical/Surgical History: Denies Medical/Surgical History Cardiovascular History: Reports: High Cholesterol, Hypertension Genitourinary History: Reports: Renal Calculus Other Genitourinary History: lithotripsy Musculoskeletal History: Reports: Other (See Below) Other Musculoskeletal History: spinal stenosis Psychiatric History: Reports: Anxiety, Depression Endocrine/Metabolic History: Reports: Obesity/BMI 30+, Other (See Below) Other Endocrine/Metabolic History: diet controlled diabetis - Past Surgical History HEENT Surgical History: Reports: Tonsillectomy, Other (See Below) Other HEENT Surgeries/Procedures: Ear Surgery GI Surgical History: Reports: Cholecystectomy Female Surgical History: Reports: Lithotripsy/ESWL, Tubal Ligation Neurological Surgical History: Reports: C-Spine Social & Family History - Tobacco Use Smoking Status *Q: Never Smoker - Caffeine Use Caffeine Use: Reports: Soda - Recreational Drug Use Recreational Drug Use: No - Living Situation & Occupation Living situation: Reports: Single Occupation: Employed ED ROS GENERAL - Review of Systems Review Of Systems: See Below Constitutional: Denies: Fever, Chills, Weakness HEENT: Reports: Ear Discharge, Ear Pain, Sinus Problem (Congestion) Respiratory: Reports: Cough. Denies: Shortness of Breath, Wheezing Cardiovascular: Reports: No Symptoms Endocrine: Reports: No Symptoms GI/Abdominal: Reports: No Symptoms : Reports: No Symptoms Musculoskeletal: Reports: Other (Generalized body aches) Skin: Reports: No Symptoms Neurological: Reports: No Symptoms Psychiatric: Reports: No Symptoms Hematologic/Lymphatic: Reports: No Symptoms Immunologic: Reports: No Symptoms ED EXAM, GENERAL - Physical Exam Exam: See Below General Appearance: Alert, WD/WN, No Apparent Distress Ear Exam: Bilateral Ear: TM Red, TM Bulging (Right), Other (Purulent drainage to the left TM. Unable to visualize myringotomy tube due to pain on exam. TM that could be visualized was erythematous.) Respiratory/Chest: No Respiratory Distress, Lungs Clear, Normal Breath Sounds, No Accessory Muscle Use, Chest Non-Tender Cardiovascular: Normal Peripheral Pulses, Regular Rate, Rhythm, No Edema, No Gallop, No JVD, No Murmur, No Rub Neurological: Alert, Oriented, CN II-XII Intact, Normal Cognition, Normal Gait, Normal Reflexes, No Motor/Sensory Deficits Psychiatric: Normal Affect, Normal Mood Skin Exam: Warm, Dry, Intact, Normal Color, No Rash Course - Vital Signs Last Recorded V/S: Last Vital Signs Temp 98.6 F 09/01/20 16:11 Pulse 99 09/01/20 16:11 Resp 16 09/01/20 16:11 BP 165/86 H 09/01/20 16:11 Pulse Ox 97 09/01/20 16:11 - Orders/Labs/Meds Orders: Active Orders 24 hr Category Date Time Status Influenza Vaccine Charge [RC] .DISCHARGE Care 09/01/20 16:20 Active Chest 1V Frontal [CR] Stat Exams 09/01/20 16:25 Taken CORONAVIRUS COVID-19 PCR PHL Routine Lab 09/01/20 16:50 Ordered Meds: Medications Discontinued Medications Generic Name Dose Route Start Last Admin Trade Name Freq PRN Reason Stop Dose Admin Doxycycline Hyclate 100 mg 09/01/20 16:51 Vibramycin PO 09/01/20 16:52 ONETIME ONE Ibuprofen 600 mg 09/01/20 16:51 Motrin PO 09/01/20 16:52 ONETIME ONE Influenza Virus Vaccine 60 mcg 09/01/20 16:45 Fluzone Quad [id number] Syringe IM 09/01/20 16:46 .ONCE ONE - Re-Assessments/Exams Free Text/Narrative Re-Assessment/Exam: Patient is a 65-year-old female presenting to the emergency department with complaints of cough, ear pain, and generalized body aches. On exam, bilateral tympanic membranes are erythematous. Right TM is bulging. There is drainage within the canal of the left ear, however I am able to visualize the myringotomy tube as examined to that ear is painful. The portion of the TM that can be visualized is erythematous. Lung sounds are clear to auscultation. I have ordered a chest x-ray. We will start treatment for her bilateral acute otitis media with doxycycline as she is penicillin allergic. 09/01/20 17:02 Chest x-ray was negative for any acute abnormalities. First dose of doxycycline was given in the emergency department. We will also complete a coronavirus test, however my suspicion is that this is bacterial in nature. Recommend follow-up with her primary care provider if symptoms not improved. Discharge instructions as documented. Departure - Departure Time of Disposition: 17:03 Disposition: Home, Self-Care 01 Condition: Good Clinical Impression: Acute otitis media Qualifiers: Otitis media type: suppurative Laterality: bilateral Recurrence: not specified as recurrent Spontaneous tympanic membrane rupture: without spontaneous rupture Qualified Code(s): H66.003 - Acute suppurative otitis media without spontaneous rupture of ear drum, bilateral - Discharge Information *PRESCRIPTION DRUG MONITORING PROGRAM REVIEWED*: No *COPY OF PRESCRIPTION DRUG MONITORING REPORT IN PATIENT JOHNNA: No Prescriptions: Doxycycline [Vibramycin] 100 mg PO BID 7 Days #14 tab Instructions: Otitis Media, Adult, [id number] Referrals: Ann-Marie Coffey PA-C [Primary Care Provider] - Forms: ED Department Discharge, ED Return to Work/School Form Additional Instructions: You were seen in the emergency department today for cough, bilateral ear pain, and generalized body aches. Chest x-ray was completed and did not show any signs of a pneumonia. On exam, you do unfortunately of ear infections in both of your ears. You have been started on doxycycline which is an antibiotic for treatment of this. Take this as prescribed. Use [id number] Tylenol and ibuprofen as needed for discomfort. A coronavirus test is also been completed today. He will be notified of his results when they are available. Recommend that you self isolate until symptoms improved and results are available. Follow-up with your primary care provider if your ear pain is not improving. Return to the ER for any new or worsening symptoms of concern. Sepsis Event Note (ED) - Evaluation Sepsis Screening Result: No Definite Risk - Focused Exam Vital Signs: Vital Signs Temp Pulse Resp BP Pulse Ox 09/01/20 16:11 98.6 F 99 16 165/86 H 97 - My Orders Last 24 Hours: My Active Orders 09/01/20 16:20 Influenza Vaccine Charge [RC] .DISCHARGE 09/01/20 16:25 Chest 1V Frontal [CR] Stat 09/01/20 16:50 CORONAVIRUS COVID-19 PCR PHL Routine - Assessment/Plan Last 24 Hours: My Active Orders 09/01/20 16:20 Influenza Vaccine Charge [RC] .DISCHARGE 09/01/20 16:25 Chest 1V Frontal [CR] Stat 09/01/20 16:50 CORONAVIRUS COVID-19 PCR PHL Routine
== END 2020-09-01 18:05 | disposition home or self-care (01) ==
LOC: JD.ED 16:02
DX: H66.003 Acute suppurative otitis media without spontaneous rupture of ear drum, bilateral (principal); I10 Essential (primary) hypertension; E78.00 Pure hypercholesterolemia, unspecified; F41.9 Anxiety disorder, unspecified; F32.9 Major depressive disorder, single episode, unspecified; E66.9 Obesity, unspecified; Z68.39 Body mass index [BMI] 39.0-39.9, adult; Z23 Encounter for immunization; Z88.0 Allergy status to penicillin; Z79.84 Long term (current) use of oral hypoglycemic drugs; Z79.899 Other long term (current) drug therapy; Z20.828 Contact with and (suspected) exposure to other viral communicable diseases
CPT/HCPCS: 71045; 87635; 90471; 90686; 99283; A9270; G0008; U0002